=== PATIENT | male | born 1955 | race Caucasian/White ===

== ENCOUNTER 2021-02-03 07:19 | Outpatient (CLI) | payer MEDICARE, SELFPAY ==
[2021-02-03 08:47] LABS: Alanine Aminotransferase 35 U/L (16-63); Albumin Level 3.9 g/dL (3.4-5.0); Alkaline Phosphatase 55 U/L (46-116); Anion Gap 8 mmol/L (8-16); Aspartate Amino Transferase 19 U/L (15-37); Bilirubin,Total 0.6 mg/dL (0.00-1.00); Blood Urea Nitrogen 18 mg/dL (7-18); Calcium 8.5 mg/dL (8.5-10.1); Carbon Dioxide 31 mmol/L (21-32); Chloride 103 mmol/L (98-108); Cholesterol 188 mg/dL (0-200); Estimated Glomerular Filt Rate > 60; Glucose 99 mg/dL (70-99); HDL Direct 74 mg/dL (40-60); LDL Cholesterol Calculated 95 mg/dL (<130); Osmolality Calculated 295 mOsm/kg (285-295); Potassium 4.2 mmol/L (3.5-5.1); Sodium 142 mmol/L (136-145); Thyroid Stimulating Hormone 8.41 uIU/mL (0.36-3.74); Triglycerides 93 mg/dL (0-150)
== END 2021-02-03 07:20 | disposition home or self-care (01) ==
LOC: CHSLAB 07:22
PROVIDERS: PCP Family Medicine; Visit Provider Family Medicine
DX: E78.5 Hyperlipidemia, unspecified (principal)
CPT/HCPCS: 36415; 80053; 80061; 84439; 84443

== ENCOUNTER 2021-04-15 05:22 | Emergency (ER) | payer MEDICARE, SELFPAY ==
[2021-04-15] VITALS (24 sets, daily range): BP systolic 112–152; BP diastolic 75–92; PULSE 81–103; RESP 12–22; TEMP 36.8–37.3; O2SAT 92–98
--- NOTE | ~2021-04-15 | CT_ITS ---
EXAMINATION: CT abdomen pelvis wo con EXAM DATE: 04/15/2021 08:03 INDICATION: Nausea vomiting diarrhea, abdominal pain. History of bowel obstruction and hernia surgeri es. TECHNIQUE: Spiral CT of the abdomen and pelvis was performed without contrast. Axial, coronal and s agittal images of the abdomen and pelvis were reviewed. The dose-length product (DLP) for this exami nation was 394.18 mGy-cm. The exposure was tailored according to patient size (auto mA exposure cont rol), and iterative reconstruction (ASIR) was used as additional dose reduction technique. Comparison is made to prior examination from 03/11/2015. FINDINGS: The liver, spleen, adrenal glands and pancreas are unremarkable. Gallbladder is unremarkab le. No biliary obstruction. There is no nephrolithiasis or hydronephrosis. The prostate is unrema rkable. The bladder is unremarkable. There is no retroperitoneal or pelvic lymphadenopathy. There is mild scattered arteriosclerotic disease. Small bilateral inguinal fat-containing hernias. The appendix is not positively visualized. There is no pericecal inflammatory change to suggest appe ndicitis. Multiple loops of mildly distended small bowel with air-fluid levels, and colonic fluid. No transition point favors gastroenteritis and diarrhea for this appearance. Small amount of reactive free pelvic fluid There is moderate sigmoid predominant colonic diverticulosis. There is no adjacen t inflammatory change to suggest diverticulitis. No free intraperitoneal gas. The heart is normal in size. There are no pericardial or pleural effusions. The lung bases are unremarkable. There are no osteoblastic or osteolytic lesions identified. IMPRESSION: Mildly dilated small bowel with air-fluid levels, colonic fluid and some reactive free pe lvic fluid. Constellation of findings most consistent with gastroenteritis, mild ileus, diarrhea. Reviewed, dictated and finalized at location A. SALES MANAGER IMPRESSION: Mildly dilated small bowel with air-fluid levels, colonic fluid and some reactive free pelvic fluid. Constellation of findings most consistent wit h gastroenteritis, mild ileus, diarrhea.
--- NOTE | 2021-04-15 06:58 | PC.NURSE ---
Pt arrives in ED c/o 2-day hx of nvd. Reports hx of SBO several years ago . Reports watery diarrhea and vomiting several times before arrival. LBM 04/14/21. Currently denies nausea, diarrhea, or abd pain. denies sick contacts. a/o x 4. skin pwd.
--- NOTE | 2021-04-15 07:10 | PC.NURSE ---
Assumed care of pt. at this time. report from CRESCENCIO Lawrence
--- NOTE | 2021-04-15 07:22 | ED.GENADULT ---
HPI - General Adult General Chief complaint: Nausea/Vomiting/Diarrhea Stated complaint: N/V/D since Friday Time Seen by Provider: 04/15/21 07:01 Source: RN notes reviewed History of Present Illness HPI narrative: Patient presents emergency department from home for abdominal pain. Patient states symptoms began 2 days ago. Pain is diffuse across the abdomen described as cramping in nature states is associated with numerous episodes of nausea vomiting patient states that he has had numerous episodes of diarrhea with this as well. He denies any fevers or chills chest pain or shortness of breath states he not take any pain medication at home for the symptoms. Patient states he does have a history of small bowel obstruction Related Data Allergies Allergy/AdvReac Type Severity Reaction Status Date / Time codeine Allergy Severe SWELLING Verified 04/15/21 06:45 OF FACE iodine Allergy Severe SEVERE Verified 04/15/21 06:45 SWELLING; REC'D EPI AFTER IODINE EXPOSURE Review of Systems Review of Systems: Gen.: Denies fevers or chills ENT: Denies congestion Respiratory: Denies shortness of breath or cough CV: Denies chest pain or palpitations GI: See HPI Musculoskeletal: Denies back pain or muscle pain Neuro: Denies numbness, tingling, weakness or focal weakness Skin: Denies rash Except as documented, all other systems reviewed and negative PMFSH Past Medical History Medical History (Updated 04/15/21 @ 09:35 by Felipe Linton DO) Small bowel obstruction Social History Social History (Updated 04/15/21 @ 07:23 by Felipe Linton DO) Smoking status: Never smoker Exam Narrative: APPEARANCE: No acute distress, nontoxic, resting in bed HEENT: Normocephalic, atraumatic, OMM RESPIRATORY: No respiratory distress, clear to auscultation bilaterally with no rhonchi wheezing or rales CARDIOVASCULAR: RRR s murmur ABDOMINAL: Soft nondistended diffusely tender palpation no rebound or guarding MUSCULOSKELETAl: Moves all extremities. No clubbing, cyanosis or edema. NEURO: Awake and alert. Following commands, speech normal, no focal deficits SKIN:: Warm, dry. Normal Color PSYCHIATRIC: Normal affect/mood Course Course Emergency Course: Patient states he is feeling much better states abdominal pain is resolved able to drink in ED with no emesis Patient states that they are feeling much better at this time. States abdominal pain has resolved. Repeat abdominal exam shows the patient's abdomen to be soft and nontender. Discussed with patient results of workup and diagnosis. Discussed need for follow-up with primary care physician, reasons to return to the emergency department in proper use of medication. Patient understands and agrees to current treatment plan Vital Signs Vital signs: Vital Signs Temperature 98.3 F 04/15/21 05:26 Pulse Rate 103 H 04/15/21 05:26 Respiratory Rate 21 H 04/15/21 05:26 Blood Pressure 152/83 H 04/15/21 05:26 Pulse Oximetry 98 04/15/21 05:26 Temperature 99.1 F 04/15/21 07:39 Pulse Rate 85 04/15/21 09:15 Respiratory Rate 13 04/15/21 09:15 Blood Pressure 128/77 04/15/21 09:00 Pulse Oximetry 97 04/15/21 09:15 Medical Decision Making MDM Narrative Medical decision making narrative: Patient's abdomen is soft without significant pain or signs of surgical abdomen on serial exams. Lab and x-ray evaluations are reviewed and patient is felt to be a reasonable candidate for outpatient management. Patient was instructed as to limitations of x-ray and laboratory evaluation and encouraged to return to ED or primary physician for repeat exam in 12 hours if continued or worsening pain Vital Signs Vital Signs: Vital Signs Temperature 98.3 F 04/15/21 05:26 Pulse Rate 103 H 04/15/21 05:26 Respiratory Rate 21 H 04/15/21 05:26 Blood Pressure 152/83 H 04/15/21 05:26 Pulse Oximetry 98 04/15/21 05:26 Temperature 99.1 F 04/15/21 07:39 Pulse Rat
[2021-04-15] MEDS: SODIUM CHLORIDE 0.9% IV 1,000 ML 999 ML IV CONT (07:47)
[2021-04-15] MEDS: ONDANSETRON INJ 4 MG/2 ML VIAL IV PUSH (07:49)
[2021-04-15 08:44] LABS: Basophils Absolute Auto 0.1 K/mm3 (0.0-0.1); Basophils Percent Auto 0.5 % (0.2-1.2); Eosinophils Absolute Auto 0.2 K/mm3 (0-0.3); Eosinophils Percent Auto 1.7 % (0-4.4); Hematocrit 41.9 % (42.0-52.0); Hemoglobin 13.3 g/dL (14.0-18.0); Immature Granulocyte Absolute 0.04 K/mm3 (0.00-0.031); Immature Granulocyte Percent A 0.4 % (0-0.5); Lymphocytes Absolute Auto 0.85 K/mm3 (0.9-3.2); Lymphocytes Percent Auto 7.8 % (18.3-44.2); Mean Corpuscular HGB Conc 31.7 g/dl (32-36); Mean Corpuscular Hemoglobin 30.3 pg (26-34); Mean Corpuscular Volume 95.4 fl (80-100); Monocytes Absolute Auto 1.3 K/mm3 (0.1-0.6); Monocytes Percent Auto 12.2 % (2.6-8.5); Neutrophils Absolute Auto 8.5 K/mm3 (1.3-6.7); Neutrophils Percent Auto 77.4 % (45.5-73.1); Platelet Count Result 167 k/mm3 (150-375); Red Blood Count 4.39 M/mm3 (4.6-6.20); Red Cell Distribution Width 13.2 % (11.5-14.5); White Blood Count 10.9 K/mm3 (4.5-10.0)
[2021-04-15 08:53] LABS: Alanine Aminotransferase 19 U/L (4-50); Albumin Level 3.7 g/dL (3.5-5.1); Alkaline Phosphatase 53 U/L (38-126); Anion Gap 6 mmol/L (8-16); Aspartate Amino Transferase 22 U/L (17-59); Bilirubin,Total 0.8 mg/dL (0.2-1.3); Blood Urea Nitrogen 20 mg/dL (9-20); Calcium 8.2 mg/dL (8.4-10.2); Carbon Dioxide 27 mmol/L (22-30); Chloride 104 mmol/L (98-107); Estimated CRCL calculation 56 ml/min; Estimated Glomerular Filt Rate > 60; Glucose 109 mg/dL (65-110); Lactic Acid Reflex 0.9 mmol/L (0.7-2.1); Lipase 40 U/L (23-300); Potassium 3.8 mmol/L (3.4-5.0); Sodium 137 mmol/L (137-145)
[2021-04-15 09:29] LABS: Add Urine Microscopic? YES; Appearance Urine Clear (Clear); Bilirubin Urine Negative (Negative); Blood Urine 2+ (Negative); Color Urine Yellow (Yellow); Glucose Urine UA Negative (Negative); Ketones Urine Trace mg/dL (Negative); Leukocyte Esterase Ur Negative LEU/UL (Negative); Mucus Urine Heavy /lpf; Nitrate Urine Negative (Negative); Protein Urine Negative (Negative); Specific Grav Ur 1.027 (1.001-1.035); Squamous Epithelial Cell Urine Rare /hpf (Few); Urobilinogen Urine Negative mg/dL (<2.0); WBC Urine 0-3 /hpf
== END 2021-04-15 10:00 | disposition home or self-care (01) ==
PROVIDERS: Emergency Provider Emergency Medicine; PCP Family Medicine
DX: R10.9 Unspecified abdominal pain (principal); R11.2 Nausea with vomiting, unspecified; R19.7 Diarrhea, unspecified
CPT/HCPCS: 36415; 74176; 80053; 81001; 83605; 83690; 85025; 96361; 96374; 96375; 99284; J0131; J2405; J7030

== ENCOUNTER 2021-04-17 16:38 | Outpatient (CLI) | payer MEDICARE, SELFPAY ==
[2021-04-17 18:30] LABS: SARS-CoV-2 RNA PCR Negative (Negative)
== END 2021-04-17 16:39 | disposition home or self-care (01) ==
LOC: CHSLAB 16:41
PROVIDERS: PCP Family Medicine; Visit Provider Family Medicine
DX: R11.2 Nausea with vomiting, unspecified (principal); Z20.822 Contact with and (suspected) exposure to COVID-19
CPT/HCPCS: C9803; U0003; U0005

== ENCOUNTER 2024-06-28 12:07 | Outpatient (CLI) | payer MEDICARE, SELFPAY ==
--- NOTE | ~2024-06-28 | XR_ITS ---
Right foot Technique: AP, oblique, and lateral views were obtained. Clinical History: Injury Findings: No acute fracture or dislocation is seen. Osseous alignment is anatomic. Joint spaces are p reserved without erosive or degenerative change. Soft tissues are unremarkable. Impression: Unremarkable right foot radiographs. Reviewed, dictated and finalized at location . Impression: Unremarkable right foot radiographs.
--- OUTSIDE RECORDS SUMMARY | 2024-06-28 14:33 | XMS_ITS | Patient Health Summary ---
Author Organization [facility] Address [address] [place] [address] Care Team Providers Care Medical Case Worker Name Role Phone Unavailable Primary Care Provider Unavailabl e Note from [facility],non-owned Affiliates and Associated Physician Practices is amultiple site organization consisting of ambulatory clinics and hospital sitesin [place], [place], [place] and [place]. This disclosure is being madepursuant to the Care Everywhere program and may not contain all information available regarding this patient. Last updated 18.[facility] Social History Tobacco Use Types Packs/Day Years Used Date Smoking Tobacco: Never Assessed Sex and Gender Information Value Date Recorded Sex Assigned at Not on file Gender Identity Not on file Sexual Orientation Not on file Procedures * GROSS + MICRO EXAM(Performed 03/01/1996) Results * GROSS + MICRO EXAM (03/01/1996 7:32 AM EVALUATION MANAGER) Result CASE NUMBER [id number] Comment: ORDERING PHYSICIAN LUCIO JO SPECIMEN TYPE Tissue-preperitonal Date 02/29/1996 Physician Carolina Jo Gross Description The specimen is received in a formalin-filled container labeled with the patient's name and preperitoneal fat , and consists of multiple, irregularly-shaped fragments of yellow adipose tissue measuring approximately 4 x 3 x 1 cm. in aggregate. The specimen is serially sectioned, revealing it to be composed of adipose tissue with no focal lesions. Electric Range Preparer sections are submitted in a single cassette. DB/bk Microscopic Exam Microscopic examination reveals lobular fragments of adipose tissue that are mature in type and focally characterized by a very thin membranous layer consistent with peritoneum. Occasional dilated vessels are seen. No malignancy of atypia is identified. Diagnosis I. Tissue from epigastric herniorrhaphy A. Adipose tissue. *Snomed Code 1 [id number] Ordnance Artificer kn Pathologist Zac Coker M.D. MISCELLANEOUS SAMPLES / Unknown 03/01/1996 7:32 AM EVALUATION MANAGER 03/01/1996 7:32 AM EVALUATION MANAGER Historical Provider LAB - PATHOLOGY/C YTOLOGY ORDERABLES
--- OUTSIDE RECORDS SUMMARY | 2024-06-28 14:33 | XMS_ITS | Continuity of Care Document ---
Author Organization [facility] Address [address] [place] [address] Phone Care Team Providers Care Poly Packer And Heat Sealer Name Role Phone Pringle OD, Bobby Unavailable Unavailable Procedures Procedure Date Eye Exam & Treatment Refraction Advance Directives Directive Yes / No Effective Date File Name No Information Encounters Encounter Description Practice Location Reason(s) For Visit Diagnoses Date Provider Providers Copied on Encounter [facility], [address], [place], [place], [id number], [place] tel:[phone] [facility] No Information 4-200 9 Pringle OD Bobby. [address] , [address], [place], [address], [place]. tel:[phone] Family History Family Member Type Diagnosis Age At Onset No Information Payers Payer name Insurance type Covered republican ID Authoriza tion(s) No Information Social History Type Description Quantity Date Captured Comments Sex Male Smoking Status No Information Chief Complaint And Reason For Visit No Information Reason For Referral Reason For Referral No Information History Of Present Illness Encounter Date Complaint History Of Prese nt Illness No Information Functional Status Date Functional Assessmen t No Information Instructions Date Instruction Additional Infor mation No Information Assessments Type Assessment Date No Information Patient Care Teams Name Effective Dates (start - stop) Status Members No Information
--- OUTSIDE RECORDS SUMMARY | 2024-06-28 14:33 | XMS_ITS | Clinical Summary ---
Author Organization [facility] Address [address] [place] [address] Care Team Providers Care Panel Builder Name Role Phone Unavailable Primary Care Provider Unavailabl e Source Comments [facility],non-owned Affiliates and Associated Physician Practices is amultiple site organization consisting of ambulatory clinics and hospital sitesin [place], [place], [place] and [place]. This disclosure is being madepursuant to the Care Everywhere program and may not contain all information available regarding this patient. Last updated 18.[facility] Social History Tobacco Use Types Packs/Day Years Used Date Smoking Tobacco: Never Assessed Sex and Gender Information Value Date Recorded Sex Assigned at Not on file Gender Identity Not on file Sexual Orientation Not on file Plan of Treatment Health Maintenance Due Date Last Done Comments COLOGUARD (AGES 45-75) - COL ON CA SCREENING 1953 COLON MONITORING 1953 COLONOSCOPY - COLON CA SCREENING 1953 CT COLONOGRAPHY - COLON CA SCREENING 1953 Colorectal Cancer Screening 1953 FIT - COLON CA SCREENING 1953 FLEX SIG - COLON CA SCREENING 1953 LIPID TESTING 1953 HEPATITIS C SCREENING 12/30/1970 DTAP/TDAP/TD VACCINES (1 - Tdap) 01/04/1972 PNEUMOCOCCAL VACCINE 50+ (1 of 1 - PCV) 2003 ZOSTER VACCINE (1 of 2) 2003 COVID-19 VACCINE ( - 2023-2 5 season) 2023 INFLUENZA VACCINE (#1) 2023 DEPRESSION SCREENING 04/14/2024 Respiratory Syncytial Virus (RSV) Vaccine Pt: or over 60 yrs (1 - 1-dose 75+ series) 01/04/2028 HEPATITIS B VACCINE Aged Out No longe r eligible based on patient's age to complete this topic HIB VACCINE Aged Out No longer eligi ble based on patient's age to complete this topic HPV VACCINE Aged Out No longer eligi ble based on patient's age to complete this topic MENINGOCOCCAL (Group B) VACC INE SHARED DECISION-MAKING Aged Out No longer eligibl e based on patient's age to complete this topic MENINGOCOCCAL GROUPS A/C/Y/W VACCINE Aged Out No longer eligible b ased on patient's age to complete this topic
--- OUTSIDE RECORDS SUMMARY | 2024-06-28 14:33 | XMS_ITS | Referral Summary ---
Author Organization [facility] Address [address] [place] [address] Care Team Providers Care Professor Of Geography Name Role Phone Unavailable Primary Care Provider Unavailabl e Source Comments [facility],non-owned Affiliates and Associated Physician Practices is amultiple site organization consisting of ambulatory clinics and hospital sitesin [place], [place], [place] and [place]. This disclosure is being madepursuant to the Care Everywhere program and may not contain all information available regarding this patient. Last updated 18.[facility] [employer] Social History Tobacco Use Types Packs/Day Years Used Date Smoking Tobacco: Never Assessed Sex and Gender Information Value Date Recorded Sex Assigned at Not on file Gender Identity Not on file Sexual Orientation Not on file Plan of Treatment Not on file
== END 2024-06-28 12:08 | disposition home or self-care (01) ==
LOC: CHSLAB 12:11 → CHSIMG 12:15
PROVIDERS: PCP Family Medicine; Visit Provider Family Medicine
DX: M25.571 Pain in right ankle and joints of right foot (principal)
CPT/HCPCS: 73610; 73630

== ENCOUNTER 2024-06-30 10:51 | Outpatient (RCR) | payer MEDICARE, SELFPAY ==
--- NOTE | 2024-06-30 11:52 | OPREHPOC ---
Outpatient Therapy Plan of Care This is a Multidisciplinary Plan of Care that may contain components documented by all disciplines (PT, OT, and ST.) PT Problem 1 PT Problem #1 Knowledge Deficit PT Goal 1 Goal / Goal Update Independent with HEP. Target Visit 4 PT Problem 2 PT Problem #2 Impaired Range of Motion PT Goal 1 Goal / Goal Update Pt to improve active ankle dorsiflexion ROM with knee extended to 20 degrees. Target Visit 8 PT Problem 3 PT Problem #3 Impaired Gait PT Goal 1 Goal / Goal Update Pt to ambulation with improved time in stance on the R LE and equal step length bilaterally. Target Visit 8 PT Problem 4 PT Problem #4 Impaired Strength PT Goal 1 Goal / Goal Update Pt to improve gross R LE strength to 5/5. Target Visit 8 PT Problem 5 PT Problem #5 Impaired Functional Mobility PT Goal 1 Goal / Goal Update Pt to report no more than 10% disability on LEFS questionnaire. Pt to be able to walk more than 3 miles without feeling tightness in the R ankle. Target Visit 8
--- NOTE | 2024-06-30 11:52 | PTOPEVAL1 ---
Assessment and note entered by Elena Kirk, PT Evaluation Information Assessment Status Evaluation ICD-10 Condition Codes (PT) Pain in right ankle and joints of right foot M25. 571,Difficulty Walking R26.2 Onset 05/15/24 Subjective Information Pt reports spraining his ankle playing pickleball in May. He states his ankle rolling while he was running to hit the ball and states he also had the wrong shoes on. Since it happened he has been walking with a limp. He denies any real pain but does note some tightness and a burning sensation when walking, and he is able to do stairs but takes his time by doing one step at a time. X ray ruled out a fracture and he notes it swelled up a lot initially but it's improved. States he did sprain the R ankle long ago playing ice hockey but it healed within a week. He is still able to cycle his normal distance without much pain (15 miles), but he notes cycling is easier on his ankle than walking. Reported Pain Level Pain Score 0: Self Report Assessment PT Clinical Summary Mr. Graham is a 69 yo male presenting to physical therapy for R foot/ankle pain. He demonstrates slightly impaired R ankle strength compared to the uninvolved side as well as ROM impairments and gait deviations that are interfering with his ability to go on long distance walks and play pickleball. He will benefit from skilled PT intervention to improve on these deficits and return to prior level of function. Plan of Care Interventions Electrical Stimulation,Gait Training,Hot Pack/Cold Pack,Intermittent Compression Pump,Manual Therapy ,Neuro Re-education,Patient/Caregiver Education, Therapeutic Activities,Therapeutic Exercise,Self- Care/Home Management PT Services Indicated Yes Treatment Frequency and 2x/week for 8 visits Duration These treatments will address the objective and functional deficits as defined above. The patient will be advanced safely and appropriately in order for the patient to progress towards his/her prior level of function. Additional exercises will be introduced and as well as a comprehensive home exercise program upon discharge, if needed, ?to ensure carryover of functional gains achieved in the clinic. This treatment plan has been reviewed and agreement upon by the patient.
--- NOTE | 2024-07-26 08:38 | OPREHPOC ---
Outpatient Therapy Plan of Care This is a Multidisciplinary Plan of Care that may contain components documented by all disciplines (PT, OT, and ST.) PT Problem 1 PT Problem #1 Knowledge Deficit PT Goal 1 Goal / Goal Update Independent with HEP. Target Visit 4 Progress Met PT Problem 2 PT Problem #2 Impaired Range of Motion PT Goal 1 Goal / Goal Update Pt to improve active ankle dorsiflexion ROM with knee extended to 20 degrees. Target Visit 8 Progress Met PT Problem 3 PT Problem #3 Impaired Gait PT Goal 1 Goal / Goal Update Pt to ambulation with improved time in stance on the R LE and equal step length bilaterally. Target Visit 8 Progress Met PT Problem 4 PT Problem #4 Impaired Strength PT Goal 1 Goal / Goal Update Pt to improve gross R LE strength to 5/5. Target Visit 8 Progress Partially Met PT Problem 5 PT Problem #5 Impaired Functional Mobility PT Goal 1 Goal / Goal Update Pt to report no more than 10% disability on LEFS questionnaire. -not met Pt to be able to walk more than 3 miles without feeling tightness in the R ankle. -met Target Visit 8 Progress Partially Met
--- NOTE | 2024-07-26 08:38 | PTOPDC ---
Assessment and note entered by Elena Kirk, PT Evaluation Information Assessment Status Discharge ICD-10 Condition Codes (PT) Pain in right ankle and joints of right foot M25. 571,Difficulty Walking R26.2 Onset 05/15/24 Subjective Information Tate reports his ankle feels much better since beginning therapy and he no longer has pain. He feels like his strength has improved and he is able to cycle and walk without difficulty. However despite this progress he still feels like something's not right in his ankle. Reported Pain Level Pain Score 0: Self Report Assessment PT Clinical Summary Mr. Graham has attended 8 total skilled physical therapy visits addressing R foot/ankle pain following a suspected sprain playing pickleball. Since beginning therapy he has made great improvements in his LE strength and has experienced a reduction in pain. However he still demonstrates impaired ankle plantarflexion strength as well as a positive Paul test indicated potential Achilles tendon involvement. He has met or partially met all therapeutic goals set for him and is able to walk and cycle without difficulty, but would benefit from MRI of the R foot/ankle to rule out Achilles involvement. Plan of Care PT Services Indicated No
== END 2024-07-26 09:30 | disposition home or self-care (01) ==
LOC: CHSPT 10:51
PROVIDERS: PCP Family Medicine; Visit Provider Family Medicine
DX: M25.571 Pain in right ankle and joints of right foot (principal); R26.2 Difficulty in walking, not elsewhere classified
CPT/HCPCS: 97110; 97112; 97140; 97161; 97530

== ENCOUNTER 2024-09-15 12:10 | Outpatient (CLI) | payer MEDICARE, SELFPAY ==
--- OUTSIDE RECORDS SUMMARY | 2024-09-15 12:14 | XMS_ITS | Continuity of Care Document ---
Author Organization [facility] Address [address] [place] [address] Phone Care Team Providers Care Emergency Department Name Role Phone Pringle OD, Bobby Unavailable Unavailable Procedures Procedure Date Eye Exam & Treatment Refraction Advance Directives Directive Yes / No Effective Date File Name No Information Encounters Encounter Description Practice Location Reason(s) For Visit Diagnoses Date Provider Providers Copied on Encounter [facility], [address], [place], [place], [id number], [place] tel:[phone] [facility] No Information 4-200 9 Pringle OD Bobby. [address], [place], [address], [place]. tel:[phone] Family History Family Member Type Diagnosis Age [...]
--- OUTSIDE RECORDS SUMMARY | 2024-09-15 12:14 | XMS_ITS | Clinical Summary ---
Author Organization [facility] Address [address] [place] [address] Care Team Providers Care Hot Patcher Name Role Phone Unavailable Primary Care Provider Unavailabl e Source Comments [facility],non-owned Affiliates and Associated Physician Practices is amultiple site organization consisting of ambulatory clinics and hospital sitesin [place], [place], [place] and [place]. This disclosure is being madepursuant to the Care Everywhere program and may not contain all information available regarding this patient. Last updated 18.[facility] Social History Tobacco Use Types Packs/Day Years Used Date Smoking Tobacco: Never Assessed Sex and Gender Information Value Date Recorded Sex Assigned at Not on file Legal Sex Male 6:12 AM FURNACE CLERK Gender Identity Not on file Sexual Orientation [...] VACCINE ( - 2023-2 5 season) 2023 DEPRESSION SCREENING 04/14/2024 INFLUENZA VACCINE (Season Ended) 2024 Respiratory Syncytial Virus (RSV) Vaccine Pt: or [...]
[2024-09-20 12:38] LABS: Thyroglobulin 42.3 ng/mL; Thyroglobulin Antibodies <1 IU/mL (< or = 1); Thyroid Peroxidase Antibodies <1 IU/mL (<9)
== END 2024-09-15 12:11 | disposition home or self-care (01) ==
PROVIDERS: PCP Family Medicine; Visit Provider Family Medicine
DX: R94.6 Abnormal results of thyroid function studies (principal)
CPT/HCPCS: 36415; 84432; 86376; 86800

== ENCOUNTER 2025-02-07 08:08 | Outpatient (CLI) | payer MEDICARE, SELFPAY ==
--- NOTE | ~2025-02-07 | XR_ITS ---
EXAMINATION: XR ankle RT min 3V, 02/07/2025 8:10 CDT HISTORY: M25.571 - Pain in right ankle and joints of right foot COMPARISON: No comparisons available. Findings: No acute fracture or malalignment. No significant degenerative changes. Soft tissues unremarkable. Impression: No acute fracture or malalignment. Reviewed, dictated and finalized at location P. Impression: No acute fracture or malalignment.
--- NOTE | ~2025-02-07 | XR_ITS ---
EXAMINATION: XR foot RT min 3V, 02/07/2025 8:10 CDT HISTORY: M79.671 - Pain in right foot COMPARISON: No comparisons available. Findings: No acute fracture or malalignment. No significant degenerative changes. Soft tissues unremarkable. Impression: No acute fracture or malalignment. Reviewed, dictated and finalized at location P. Impression: No acute fracture or malalignment.
--- OUTSIDE RECORDS SUMMARY | 2025-02-07 08:19 | XMS_ITS | Clinical Summary ---
Author Organization [facility] Address [address] [place] [address] Care Team Providers Care Lube Man Name Role Phone Unavailable Primary Care Provider Unavailabl e Source Comments [facility],non-owned Affiliates and Associated Physician Practices is amultiple site organization consisting of ambulatory clinics and hospital sitesin [place], [place], [place] and [place]. This disclosure is being madepursuant to the Care Everywhere program and may not contain all information available regarding this patient. Last updated 18.[facility] Social History Tobacco Use Types Packs/Day Years Used Date Smoking Tobacco: Never Assessed Sex and Gender Information Value Date Recorded Sex Assigned at Not on file Legal Sex Male 6:12 AM ROVING OR YARN COLOR CHECKER Gender Identity Not on file Sexual Orientation [...] 2003 ZOSTER VACCINE (1 of 2) 2003 DEPRESSION SCREENING 04/14/2024 COVID-19 VACCINE (1 - 2023-2 5 season) 2024 INFLUENZA VACCINE (#1) 2024 Respiratory Syncytial Virus (RSV) Vaccine Pt: [...]
== END 2025-02-07 08:09 | disposition home or self-care (01) ==
LOC: CHSLAB 08:10
PROVIDERS: PCP Family Medicine; Visit Provider Orthopaedic Surgery
DX: M79.671 Pain in right foot (principal); M25.571 Pain in right ankle and joints of right foot
CPT/HCPCS: 73610; 73630